=== PATIENT | female | born 1970 | race Caucasian/White ===

== ENCOUNTER 2017-05-05 09:03 | Emergency (ER) | payer BC ==
[~2017-05-05] VITALS: Ht 157.5 cm; Wt 73.0 kg
[2017-05-05 09:07] VITALS: Ht 157.5 cm; Wt 73.0 kg
--- NOTE | 2017-05-05 09:26 | ERD ---
ER Documentation Chief Complaint Date/Time DATE: 05/05/17 TIME: 09:24 Chief Complaint Pelvic pain HPI 46-year-old female presents with 3 day history of bilateral lower pelvic pain radiating to her back. She describes a pressure sensation worse on the left side and goes to her lumbar region. Denies fevers or chills, vomiting, diarrhea. She denies any abnormal vaginal discharge or odor. She reports that her last pelvic ultrasound was done about a year ago and was told that there was a cyst however she does not recall the location. Patient states that her last menstrual period was on March 27. She denies any injuries, saddle anesthesia or loss of bowel bladder function. Contrary to the triage nurses note patient denies dysuria. ROS All systems reviewed and are negative except as per history of present illness. Medications Home Meds Active Scripts Ibuprofen* (Motrin*) 600 Mg Tab, 600 MG PO Q6, #30 TAB Prov:ARCENIO COLEMAN PA-C 05/05/17 PMhx/Soc History of Surgery: No Anesthesia Reaction: No Hx Neurological Disorder: No Hx Respiratory Disorders: No Hx Cardiac Disorders: No Hx Psychiatric Problems: No Hx Miscellaneous Medical Probl: No Hx Alcohol Use: No Hx Substance Use: No Hx Tobacco Use: No Smoking Status: Never smoker Physical Exam Vitals Vital Signs Date Time Temp Pulse Resp B/P Pulse Ox O2 Delivery O2 Flow Rate FiO2 05/05/17 09:07 98.8 68 18 124/70 97 Physical Exam General: Well-developed, well-nourished. The patient appears in no acute distress. HEENT: Head is normocephalic, atraumatic. No scleral icterus. Neck: Supple. Nontender. Lungs: Clear to auscultation. Normal air movement. Heart: Regular rate and rhythm. S1 and S2 are normal. No murmurs, gallops, or rubs. Abdomen: Soft, nontender, nondistended. Bowel sounds are normoactive. Extremities: No clubbing or cyanosis. Normal pulses. Moving extremities x 4. No weakness. Neurologic: Alert and oriented 3. No focal deficits. Skin: Normal turgor. No rash or lesions. Results 24 hrs Laboratory Tests Test 05/05/17 09:37 Urine Color YELLOW Urine Clarity SLIGHTLY CLOUDY Urine pH 7.0 Urine Specific [place] 1.021 Urine Ketones NEGATIVEmg/dL Urine Nitrite NEGATIVEmg/dL Urine Bilirubin NEGATIVEmg/dL Urine Urobilinogen NEGATIVEmg/dL Urine Leukocyte Esterase NEGATIVELeu/ul Urine Microscopic RBC 2/HPF Urine Microscopic WBC 1/HPF Urine Squamous Epithelial Cells FEW/HPF Urine Hemoglobin NEGATIVEmg/dL Urine Glucose NEGATIVEmg/dL Urine Total Protein NEGATIVEmg/dl Urine Test NEGATIVE Current Medications Medications (Trade) Dose Ordered Sig/Love Route PRN Reason Start Time Stop Time Status Last Admin Dose Admin Ibuprofen (Motrin) 600 mg ONCE ONCE PO 05/05/17 09:30 05/05/17 09:31 DC 05/05/17 09:32 DIAGNOSTIC IMAGING REPORT Patient: MUNIR PIEDRA : 1970 Age: 46 Sex: F MR #: [id number] DOS: 05/05/17922 Ordering MD: ARCENIO COLEMAN PA-C Location: [facility] Room/Bed: PROCEDURE: US Pelvis CLINICAL INDICATION: Pelvic pain. TECHNIQUE: Sonographic evaluation of the pelvis was performed utilizing both transabdominal and transvaginal technique. Curved array transabdominal transducer technique as well as a high frequency endovaginal probe was utilized. Images were reviewed on the high-resolution PACS workstation. COMPARISON: No prior studies are available for comparison. FINDINGS: The uterus is upper limits of normal normal in size measuring 10.4 x 5.4 x 5.9 cm in dimension. The uterus is anteverted in normal position. The endometrium is normal for a menstrual age female measuring 9.6 mm in diameter. The normal trilaminar stripe of the endometrium is preserved. The right ovary measures 3.6 x 1.8 x 2.0 cm in dimension. The left ovary measures 3.5 x 2.1 x 2.4 cm in dimension. The ovaries are symmetric in size, echogenicity, and morphology. Normal Doppler flow is demonstrated to both ovaries. There are no adnexal masses. There is no significant free fluid in the pelvis. IMPRESSION: Unremarkable ultrasound of the pelvis. RPTAT: HH .Guera Larkin MD, Date Time Electronically viewed and signed by .Guera Larkin MD, MD on 05/05/2017 10 :17 .G/ CC: ARCENIO COLEMAN PA-C Procedures/[facility] DM: 46-year-old female presents with a 3 day history of pelvic pain differential diagnosis includes ovarian torsion, PID, cervicitis, UTI, pyelonephritis, appendicitis, bowel obstruction, diverticulitis, , ectopic , and among others. The negative pelvic ultrasound, no masses. Urine is negative for infection. No signs of PID, serious bacterial infection. She was given ibuprofen for pain, with complete resolution of her symptoms. She had a last menstrual period on March 27, symptoms may be related to late menses, hormonal issue, etc. She was asked to recheck a home test in 3 days. Departure Diagnosis: Primary Impression: Pelvic pain Condition: Good ARCENIO COLEMAN PA-C May 05, 2017 09:26
[2017-05-05] MEDS ORDERED: IBUPROFEN 600 MG TAB PO ONE (09:30)
--- NOTE | 2017-05-05 10:17 | RADRPT ---
PROCEDURE: US Pelvis CLINICAL INDICATION: Pelvic pain. TECHNIQUE: Sonographic evaluation of the pelvis was performed utilizing both transabdominal and tr ansvaginal technique. Curved array transabdominal transducer technique as well as a high frequency endovaginal probe was utilized. Images were reviewed on the high-resolution PACS workstation. COMPARISON: No prior studies are available for comparison. FINDINGS: The uterus is upper limits of normal normal in size measuring 10.4 x 5.4 x 5.9 cm in dimension. The uterus is anteverted in normal position. The endometrium is normal for a menstrual age female james suring 9.6 mm in diameter. The normal trilaminar stripe of the endometrium is preserved. The right ovary measures 3.6 x 1.8 x 2.0 cm in dimension. The left ovary measures 3.5 x 2.1 x 2.4 c m in dimension. The ovaries are symmetric in size, echogenicity, and morphology. Normal Doppler fl ow is demonstrated to both ovaries. There are no adnexal masses. There is no significant free flui d in the pelvis. IMPRESSION: Unremarkable ultrasound of the pelvis. RPTAT: HH .Guera Larkin MD, Date Time Electronically viewed and signed by .Guera Larkin MD, on 05/05/2017 10:17 .G/
[2017-05-05 10:18] LABS: ADD UMIC NO; UR ASCORBIC ACID NEGATIVE (NEGATIVE); UR BILIRUBIN (Dip) NEGATIVE (NEGATIVE); UR BLOOD (Dip) NEGATIVE (NEGATIVE); UR CLARITY SLIGHTLY CLOUDY (CLEAR); UR COLOR YELLOW (YELLOW); UR GLUCOSE (Dip) NEGATIVE (NEGATIVE); UR KETONES (Dip) NEGATIVE (NEGATIVE); UR LEUKOCYTE ESTERASE (Dip) NEGATIVE Leu/ul (NEGATIVE); UR NITRITE (Dip) NEGATIVE (NEGATIVE); UR RBC 2 /HPF (0-5); UR SPECIFIC GRAVITY (Dip) 1.021 (1.003-1.030); UR SQUAMOUS EPITHELIAL CELL FEW /HPF (FEW); UR TOTAL PROTEIN (Dip) NEGATIVE (NEGATIVE); UR UROBILINOGEN (Dip) NEGATIVE (NEGATIVE)
[2017-05-05] MEDS ORDERED: IBUP-1542 PO (10:27)
== END 2017-05-05 10:35 | disposition home or self-care (01) ==
LOC: FTE 09:03
DX: R10.2 Pelvic and perineal pain (principal)
CPT/HCPCS: 76830; 76856; 81001; 81003; 84703